=== PATIENT | female | born 1935 | race Hispanic/Latino ===

== ENCOUNTER 2018-11-17 09:28 | Outpatient (CLI) | payer MEDICARE ==
--- NOTE | 2018-11-17 19:02 | RAD ---
LUMBAR SPINE THREE VIEWS: 11/17/18 Disc space narrowing is present at L5-S1. There is a grade I spondylolisthesis of L5 on S1. It is dif ficult to tell from these images if this is due to facet arthritis alone or if there is a pars defect . Slight disc space narrowing is present at L4-L5. Anterior osteophytes are prominent in the lower ger mbar spine as well as the low thoracic spine. The SI joints are symmetrical. The hip joints are symme trical and show very slight narrowing. IMPRESSION: Degenerative changes with prominent issues at the lumbosacral junction as above. CT or an MRI would b e helpful in determining any neural impingement. POS: HOME
== END 2018-11-17 09:29 | disposition home or self-care (01) ==
LOC: BURRAD 09:28
PROVIDERS: ATTEND Family Medicine
DX: M54.31 Sciatica, right side (principal); M54.32 Sciatica, left side; M47.817 Spondylosis without myelopathy or radiculopathy, lumbosacral region
CPT/HCPCS: 72100